=== PATIENT | female | born 1995 | race Asian ===

== ENCOUNTER 2022-08-10 14:53 | Emergency (ER) | payer MEDICAID ==
[~2022-08-10] VITALS: Ht 154.9 cm; Wt 52.2 kg
[2022-08-10 15:21] VITALS: BP 118/77
--- NOTE | 2022-08-10 15:24 | NUR ---
PATIENT PRESENTS TO ED WITH HEMATURINA X 4 DAYS . PT STATES SHE ALSO FEELS BURNING WHILE URINATING . DENIES N/V/D; SKIN IS PINK/WARM/DRY; AAOX4 WITH EVEN AND STEADY GAIT; LUNGS CLEAR BL; HR EVEN AND REGULAR; PT DENIES ANY FEVER, CP, SOB, OR COUGH AT THIS TIME; VSS;
[2022-08-10 15:45] LABS: APPEARANCE,URINE CLEAR (CLEAR); BILIRUBIN,URINE NEGATIVE (NEGATIVE); BLOOD, URINE 3+ (NEGATIVE); COLOR,URINE AMBER (YELLOW); LEUKOCYTE ESTERASE ,URINE 3+ (NEGATIVE); NITRITE, URINE NEGATIVE (NEGATIVE); UGLUCOSE NEGATIVE (NEGATIVE)
[2022-08-10] MEDS ORDERED: NITR100C7 PO (15:59)
[2022-08-10 16:30] VITALS: BP 112/79
--- NOTE | 2022-08-10 16:32 | NUR ---
Patient discharged with v/s stable. Written and verbal after care instructions given and explained. Patient verbalized understanding. Ambulatory with steady gait. All questions addressed prior to discharge. Advised to follow up with PMD.
== END 2022-08-10 16:30 | disposition home or self-care (01) ==
LOC: MED 14:53
DX: N39.0 Urinary tract infection, site not specified (principal); Z79.2 Long term (current) use of antibiotics
CPT/HCPCS: 81001; 81025; 87086; 87491; 99283

== ENCOUNTER 2023-09-18 14:35 | Emergency (ER) | payer OTHER, MEDICAID ==
[~2023-09-18] VITALS: Ht 162.6 cm; Wt 52.8 kg
[~2023-09-18 14:35] MED LIST: NITR100C7 PO
[2023-09-18 14:37] VITALS: BP 129/74; PULSE 68; RESP 18; TEMP 98.3; O2SAT 99
[2023-09-18 15:06] LABS: BILIRUBIN,URINE NEGATIVE (NEGATIVE); BLOOD, URINE 3+ (NEGATIVE); COLOR,URINE YELLOW (YELLOW); LEUKOCYTE ESTERASE ,URINE 3+ (NEGATIVE); NITRITE, URINE NEGATIVE (NEGATIVE); PROTEIN,URINE NEGATIVE (NEGATIVE); UGLUCOSE NEGATIVE (NEGATIVE); UROBILINOGEN,URINE 0.2 EU/dL (0.2 - 1)
[2023-09-18 15:09] LABS: APPEARANCE,URINE SLIGHTLY CLOUDY (CLEAR)
[2023-09-18 15:14] LABS: BACTERIA,URINE 2+ /HPF (None Seen); MUCUS,URINE None Seen /LPF (None Seen); SQUAMOUS EPITHELIAL CELL,UR 4-10 (MOD) /LPF (0-3 (FEW))
[2023-09-18] MEDS ORDERED: CEPH-588 PO (15:19)
[2023-09-18] MEDS ORDERED: PYR100 PO (15:19)
== END 2023-09-18 15:25 | disposition home or self-care (01) ==
LOC: MED 14:35
DX: N30.01 Acute cystitis with hematuria (principal); Z79.899 Other long term (current) drug therapy
CPT/HCPCS: 81001; 81025; 87086; 99283